=== PATIENT | male | born 1980 | race Caucasian/White ===

== ENCOUNTER 2018-05-22 15:47 | Emergency (ER) | payer OTHER ==
[2018-05-22 16:07] VITALS: BP 141/86
[2018-05-22] MEDS ORDERED: KETOROLAC TROMETHAMINE 60 MG/2 ML SDV IM ONE (18:15)
--- NOTE | 2018-05-22 18:21 | ER Document Report ---
ED General Pain - General Chief Complaint: Back Pain Stated Complaint: BACK PAIN Time Seen by Provider: 05/22/18 18:01 Mode of Arrival: Ambulatory Information source: Patient Notes: Patient is a 38-year-old male comes emergency room complaining of low back pain with radiation of the buttocks on both sides. Patient states she is a active Mirena is due back on based on Thursday. States he was doing some lifting this morning at the gym approximately 50 pounds he calls it a "pinched over row" and states he felt something pop or snap in his back. States the pain runs across the top part of his buttocks all the way across. States that it has been causing pain and discomfort in the buttocks and thighs of both legs. He denies any loss of urine or stool states he has had a recent bowel movement since that was normal and did also have 3 trips to the bathroom for urination with no loss of urine. Patient states he is on Adderall for his ADHD and Trileptal for his mood stabilizer. Smokes a pack of cigarettes a week. Denies any other injuries. TRAVEL OUTSIDE OF THE [place] IN LAST 30 DAYS: No - HPI Onset: This morning Onset/Duration: Sudden, Worse Quality of pain: Cramping, Sharp Severity: Moderate Pain Level: 3 Context: New onset Typical of prior episodes of painful crisis: No Associated symptoms: Muscle aches Exacerbated by: Supine, Sitting, Standing, Movement, Walking, Coughing, Deep breathing Relieved by: Remaining still Similar symptoms previously: Yes - Approximately 10 years ago something similar to this presentation. Recently seen / treated by doctor: No - Related Data Allergies/Adverse Reactions: No Known Allergies Allergy (Unverified 05/22/18 15:50) Past Medical History - General Information source: Patient - Social History Smoking Status: Current Some Day Smoker Cigarette use (# per day): Yes - 1 pack a week Chew tobacco use (# tins/day): No Smoking Education Provided: Yes Frequency of alcohol use: Rare Drug Abuse: None Lives with: Other - In the [place] Family History: Reviewed & Not Pertinent Patient has suicidal ideation: No Patient has homicidal ideation: No Renal/ Medical History: Denies: Hx Peritoneal Dialysis Review of Systems - Review of Systems Constitutional: No symptoms reported EENT: No symptoms reported Cardiovascular: No symptoms reported Respiratory: No symptoms reported Gastrointestinal: No symptoms reported Genitourinary: No symptoms reported Male Genitourinary: No symptoms reported Musculoskeletal: See HPI, Muscle pain Skin: No symptoms reported Hematologic/Lymphatic: No symptoms reported Neurological/Psychological: No symptoms reported -: Yes All other systems reviewed and negative Physical Exam - Vital signs Vitals: Temp Pulse Resp BP Pulse Ox 98.3 F 65 20 141/86 H 100 05/22/18 16:06 05/22/18 16:06 05/22/18 16:06 05/22/18 16:06 05/22/18 16:06 Interpretation: Hypertensive - Notes Notes: Uncomfortable appearing 30-year-old male - General General appearance: Alert In distress: None - HEENT Head: Normocephalic, Atraumatic Eyes: Normal, Scleral icterus Conjunctiva: Normal Cornea: Normal Extraocular movements intact: Yes Pharynx: Normal Neck: Normal - Respiratory Respiratory status: No respiratory distress Chest status: Nontender Breath sounds: Normal Chest palpation: Normal - Cardiovascular Rhythm: Regular, Other Heart sounds: Normal auscultation, S1 appreciated, S2 appreciated Murmur: Yes - Abdominal Inspection: Normal Distension: No distension Bowel sounds: Normal Tenderness: Nontender Organomegaly: No organomegaly - Back Back: Tender, CVA tenderness, Vertebra tenderness, Scars, Scoliosis, Other - Examination of patient's back shows he has some tenderness to palpation around the elbow or L5 area with it expanding across the top part of the buttocks. Patient has positive sciatic notch tenderness to ballottement as well. He has decreased range of motion with rotation to the right as to the left. Also with flexion and extension. There is spasms which are felt in the upper portion of the glutes. Patient has good DTRs in the lower extremities. He also has good dorsalis pedal pulses bilaterally lower extremities. He has decreased range of motion with rotation left and right as well as flexion and extension of low back.. No: Deformity/step-off - Extremities General upper extremity: Normal inspection, Nontender, Normal ROM, Normal strength General lower extremity: Normal inspection, Nontender, Normal ROM, Normal strength - Neurological Neuro grossly intact: Yes Cognition: Normal Orientation: AAOx4 [place] Coma Scale Eye Opening: Spontaneous [place] Coma Scale Verbal: Oriented [place] Coma Scale Motor: Obeys Commands Liat Coma Scale Total: 15 Speech: Normal Cerebellar coordination: Normal, Heel-gómez, Finger-nose rhombey, Rapid alt. movements Additional motor exam normals: Equal holistic nutritionist, Dorsiflexion, Plantar flexion. No: Involuntary movements, Pronator drift, Weakness - Psychological Associated symptoms: Normal affect, Normal mood - Skin Skin Temperature: Warm Skin Moisture: Dry Skin Color: Normal, [place] Skin Turgor: Elastic Course - Re-evaluation Re-evalutation: 05/22/18 19:17 Patient's x-ray of his lumbar spine show no acute findings. Were going to go along with the idea that this is going to be lumbosacral strain. Possibility of a herniated disc is still high. We will place him on a steroid taper, muscle relaxer, and I told him I give him a couple of pain pills to try to break the cycle between now on Thursday. I have also instructed him to use ice I have asked him to return to ER if he has any concerns or problems or if he loses any urine or stool or has any type of loss of foot drop. - Vital Signs Vital signs: Temp Pulse Resp BP Pulse Ox 98.3 F 65 20 141/86 H 100 05/22/18 16:06 05/22/18 16:06 05/22/18 16:06 05/22/18 16:06 05/22/18 16:06 Discharge - Discharge Clinical Impression: Lumbosacral strain Qualifiers: Encounter type: initial encounter Qualified Code(s): S39.012A - Strain of muscle, fascia and tendon of lower back, initial encounter Condition: Stable Disposition: HOME, SELF-CARE Instructions: Ice Packs ([facility]), Low Back Pain ([facility]), Muscle Relaxers ([facility]), Muscle Strain ([facility]), Oral Narcotic Medication ([facility]) Additional Instructions: Home and rest. Ice to the area 3 times a day as we discussed. Light stretching starting tomorrow. This includes stretching the hamstrings. We have any loss of sensation, urine, stool, or have any type of a lag in your walk return to ER for recheck. Prescriptions: Cyclobenzaprine HCl [Flexeril 10 mg Tablet] 10 mg PO TIDP PRN #14 tablet PRN Reason: Hydrocodone/Acetaminophen [Lenore 7.5-325 mg Tablet] 1 tab PO Q4 #8 tablet Prednisone 10 mg PO ASDIR PRN #1 tab.ds.pk PRN Reason: Forms: Elevated Blood Pressure
--- NOTE | 2018-05-22 18:56 | RADIOLOGY REPORT (SQ) ---
EXAM DESCRIPTION: L SPINE WHOLE COMPLETED DATE/TIME: 05/22/2018 6:42 pm REASON FOR STUDY: lifting with back pain COMPARISON: None. NUMBER OF VIEWS: Five views including obliques. TECHNIQUE: AP, lateral, oblique, and sacral radiographic images acquired of the lumbar spine. LIMITATIONS: None. FINDINGS: MINERALIZATION: Normal. SEGMENTATION: Normal. No transitional anatomy. ALIGNMENT: Normal. VERTEBRAE: Maintained height. No fracture or worrisome bone lesion. DISCS: Preserved height. No significant osteophytes or end plate irregularity. POSTERIOR ELEMENTS: Pedicles and facets are intact. No pars defect or posterior arch defects. HARDWARE: None in the spine. PARASPINAL SOFT TISSUES: Normal. PELVIS: Intact as visualized. No fractures or worrisome bone lesions. SI joints intact. OTHER: No other significant finding. IMPRESSION: NORMAL 5 VIEW LUMBAR SPINE. TECHNICAL DOCUMENTATION: JOB ID: [id number] [employer]- All Rights Reserved Reading location - IP/workstation name: [email or web address]
== END 2018-05-22 19:50 | disposition home or self-care (01) ==
LOC: ER 15:47
DX: S39.012A Strain of muscle, fascia and tendon of lower back, initial encounter (principal); X50.0XXA Overexertion from strenuous movement or load, initial encounter; Y93.B9 Activity, other involving muscle strengthening exercises; Y92.39 Other specified sports and athletic area as the place of occurrence of the external cause; M62.838 Other muscle spasm; M41.9 Scoliosis, unspecified; F90.9 Attention-deficit hyperactivity disorder, unspecified type; Z79.899 Other long term (current) drug therapy; F17.210 Nicotine dependence, cigarettes, uncomplicated
CPT/HCPCS: 99283; 96372; 72110; J1885